=== PATIENT | male | born 1960 | race Caucasian/White ===

== ENCOUNTER 2022-06-09 00:41 | Emergency (ER) | payer BC, MEDICAID, OTHER ==
[~2022-06-09] VITALS: Ht 177.8 cm; Wt 103.5 kg
--- NOTE | 2022-06-09 00:50 | NUR ---
Dr. Foley evaluating patient at bedside. MSE in progress.
[2022-06-09 01:14] LABS: HEMATOCRIT 39.6 % (36.7-47.1); MEAN CORPUSCULAR VOLUME 92.2 fL (73.0-96.2); PLATELET COUNT (AUTO) 270 K/uL (152-348)
[2022-06-09 01:35] LABS: CARBON DIOXIDE 27 mmol/L (21-32); CHLORIDE 103 mmol/L (98-107); CREATININE 1.6 mg/dL (0.6-1.3); GLUCOSE 99 mg/dL (74-106); POTASSIUM 3.9 mmol/L (3.5-5.1); UREA NITROGEN, BLOOD 27 mg/dL (7-18)
[2022-06-09 01:44] LABS: ALANINE AMINOTRANSFERASE 38 U/L (16-63); ALKALINE PHOSPHATASE 110 U/L (50-136); ASPARTATE AMINOTRANSFERASE 27 U/L (15-37); BILIRUBIN,DIRECT 0.1 mg/dL (0.0-0.2); BILIRUBIN,TOTAL 0.3 mg/dL (0.2-1.0); TOTAL PROTEIN, SERUM 7.3 g/dL (6.4-8.2)
--- NOTE | 2022-06-09 03:10 | NUR ---
Patient ambulated to the bathroom standby assist. Tolerated well.
[2022-06-09 03:37] LABS: *AMPHETAMINE, URINE NEGATIVE (NEGATIVE); *CANNABINOID, URINE NEGATIVE (NEGATIVE); *COCCAINE, URINE NEGATIVE (NEGATIVE); *OPIATE, URINE NEGATIVE (NEGATIVE); *PHENCYCLIDINE SCREEN,URINE NEGATIVE (NEGATIVE)
--- NOTE | 2022-06-09 05:45 | NUR ---
Dr. Foley spoke to admitting Dr. He at [facility]
--- NOTE | 2022-06-09 06:00 | NUR ---
Patient has been accepted by [facility]. Pending transfer
--- NOTE | 2022-06-09 06:52 | NUR ---
Spoke to [facility]. Faxed COVID result. Waiting electrical installation inspector back for report and bed assignment.
--- NOTE | 2022-06-09 08:33 | NUR ---
PT's CHRISTIAN SCIENCE PRACTITIONER SHASTA CALLED WITH TRANSFER INFORMATION. PT IS GOING TO BE TRANSFERED TO [facility] , TELEMETRY ROOM #[id number], ACCEPTING MD DR MCINTYRE, PHONE NUMBER FOR REPORT : [phone].
--- NOTE | 2022-06-09 08:51 | NUR ---
REPORT GIVEN TO DELBERT MARTINEZ FROM [facility].
--- NOTE | 2022-06-09 14:14 | NUR ---
PT WAS TRANSFERED TO [facility].
== END 2022-06-09 14:16 | disposition short-term general hospital (02) ==
LOC: ER 00:41
DX: R47.1 Dysarthria and anarthria (principal); Z20.822 Contact with and (suspected) exposure to COVID-19; R91.8 Other nonspecific abnormal finding of lung field; I44.0 Atrioventricular block, first degree; D72.829 Elevated white blood cell count, unspecified; E11.22 Type 2 diabetes mellitus with diabetic chronic kidney disease; N18.9 Chronic kidney disease, unspecified; Z86.73 Personal history of transient ischemic attack (TIA), and cerebral infarction without residual deficits; E78.5 Hyperlipidemia, unspecified
CPT/HCPCS: 36415; 70450; 71045; 84484; 85025; 85730; 93005; A4663